=== PATIENT | male | born 1985 | race Caucasian/White ===

== ENCOUNTER → 2019-11-20 | Outpatient (CLI) | payer OTHER ==
[~2019-11-20] MED LIST: E-Z-GAS II EFFERVESCENT PACKET (SODIUM BICARB./CITRIC ACID/SIMETHICONE) As Ordered ONE; E-Z-HD 98% w/w 340GM SUSP BTL As Ordered ONE; E-Z-PAQUE 96% w/w SUSP 176GM BTL As Ordered ONE
--- NOTE | 2019-11-20 16:32 | REP ---
Examination Requested: Esophagram Barium Swallow Reason For Exam/Comment: Choking to the phlegm larynx Esophagram: The procedure was performed MARQUES Hong, under the direct supervision of Dr. Lilly. The images were reviewed with Dr. Lilly. A single PA chest x-ray is submitted as a beef specialist film. The superior mediastinal structures are midline. The heart size is within normal limits. The lungs are clear. Liquid barium and gas producing granules were given in the erect position as well as liquid barium in the prone oblique position, in order to perform a double contrast esophagram examination. Oral and pharyngeal stages of the examination demonstrated flash penetration. Esophageal transport is efficient and there is no esophagitis, stricture, or mucosal ring noted. There is no hiatal hernia noted. Gastroesophageal reflux was not visualized throughout the course of the exam. Impression: 1. Flash penetration, otherwise unremarkable esophagram. 0.3 minutes of fluoroscopy time was utilized for this procedure. Some fluoroscopic images are performed with last image hold technology. These images require no additional radiation. Reviewed by MARQUES Collins 11/20/2019 03:09 P Electronically Signed by Nilton Lilly MD 11/20/2019 04:23 P
== END ==
LOC: M RAD 10:02
PROVIDERS: ATTEND Physician Assistant Medical
DX: T17.310A Gastric contents in larynx causing asphyxiation, initial encounter (principal); Y92.9 Unspecified place or not applicable

== ENCOUNTER → 2020-03-09 | Outpatient (CLI) | payer OTHER ==
--- NOTE | 2020-03-09 21:34 | REP ---
COOKIE SWALLOW The procedure was performed under the direct supervision of Dr. Grayson. The procedure was performed with Jessica Altamirano from speech pathology present. 5 ml aliquots of pudding, thin, mixed fruit, soft and solid consistency barium as well as a barium pill were administered. With thin consistency barium there is laryngeal penetration. A detailed report of this examination will be provided by speech pathology. 1.2 minutes of fluoroscopy time was utilized for this procedure. Electronically Signed by MARQUES Gustafson 03/09/2020 04:16 P Electronically Signed by Kasi Grayson MD 03/09/2020 09:24 P
== END ==
LOC: M ST 13:42
PROVIDERS: ATTEND Physician Assistant Medical
DX: R13.10 Dysphagia, unspecified (principal)

== ENCOUNTER 2020-05-12 07:49 | Day surgery (SDC) | payer OTHER ==
[~2020-05-12 07:49] MED LIST changes: -E-Z-GAS II EFFERVESCENT PACKET (SODIUM BICARB./CITRIC ACID/SIMETHICONE) As Ordered ONE; -E-Z-HD 98% w/w 340GM SUSP BTL As Ordered ONE; -E-Z-PAQUE 96% w/w SUSP 176GM BTL As Ordered ONE; +propofoL 200 MG/20 ML VIAL ONE
== END 2020-05-12 08:37 | disposition home or self-care (01) ==
LOC: M SDC 07:49
PROVIDERS: ATTEND Internal Medicine Gastroenterology
DX: R12 Heartburn (principal)

== ENCOUNTER → 2025-07-25 | Outpatient (REF) | payer OTHER ==
[2025-07-25 14:27] LABS: PLATELET COUNT, AUTOMATED 334 10^3/uL (150-450)
[2025-07-25 14:35] LABS: ALT/SGPT 52 U/L (7.0-40); AST/SGOT 23 U/L (<34); CALCIUM LEVEL 9.4 MG/DL (8.5-10.1); CARBON DIOXIDE LEVEL 27 MMOL/L (20-31); CHLORIDE LEVEL 104 MMOL/L (98-107); CHOLESTEROL LEVEL 207 MG/DL (<200); CHOLESTEROL RISK RATIO 5.62 (<5); CREATININE FOR GFR 1.01 MG/DL (0.70-1.30); FREE T4 1.26 NG/DL (0.89-1.76); GLOMERULAR FILTRATION RATE > 90.0 (>60); LDL CHOLESTEROL 103.0 MG/DL (<100); NON-HDL-C 170.2 MG/DL; POTASSIUM SERUM 4.3 MMOL/L (3.5-5.1); SODIUM LEVEL 142 MMOL/L (136-145); TRIGLYCERIDES LEVEL 336 MG/DL (<150)
[2025-07-25 14:41] LABS: ESTIMATED AVERAGE GLUCOSE 114.0 MG/DL (60-110)
== END ==
LOC: M SFHCADAM 08:53
PROVIDERS: ATTEND Physician Assistant
DX: Z00.00 Encounter for general adult medical examination without abnormal findings (principal); Z68.41 Body mass index [BMI] 40.0-44.9, adult